=== PATIENT | male | born 1970 | race Two or more races ===

== ENCOUNTER 2024-08-13 16:41 | Emergency (ER) | payer MEDICAID, OTHER ==
[~2024-08-13] VITALS: Ht 175.3 cm; Wt 55.0 kg
[2024-08-13 19:18] LABS: Basophils # (auto) 0 10 ^3/uL (0-0.2); Basophils % (auto) 0.5 % (0.0-2.0); Eosinophils # (auto) 0 10 ^3/uL (0-0.8); Eosinophils % (auto) 0.5 % (0.0-7.0); Hematocrit 37.7 % (41.0-53.0); Hemoglobin 13.2 g/dL (13.5-17.5); Lymphocytes # (auto) 2.1 10 ^3/uL (0.4-5.4); Mean Corpuscular Volume 105.6 fL (80.0-100.0); Monocytes # (auto) 1.3 10 ^3/uL (0-1.3); Monocytes % (auto) 17.4 % (0.0-12.0); Neutrophils # (auto) 4.2 10 ^3/uL (1.6-8.6); Neutrophils % (auto) 54.6 % (37.0-80.0); Nucleated Red Blood Cells % 0.2 %; Platelet Count (auto) 125 10^3/uL (140-450); Red Blood Cells 3.57 10^6/uL (4.5-5.90); White Blood Cell 7.7 10^3/uL (4.4-10.8)
[2024-08-13 19:42] LABS: Alanine Aminotransferase 25 U/L (7-40); Albumin 3.2 g/dL (3.2-4.8); Alkaline Phosphatase 206 U/L (46-116); Anion Gap 9 (5-15); Aspartate Aminotransferase 57 U/L (13-40); BUN/Creatinine Ratio 8.5 (10.0-20.0); Blood Alcohol < 3.0 mg/dL (<10); Blood Urea Nitrogen 7 mg/dL (9-23); Calcium 9.5 mg/dL (8.7-10.4); Carbon Dioxide 24 mmol/L (20-31); Chloride 111 mmol/L (98-107); Glucose 86 mg/dL (74-106); Potassium 3.4 mmol/L (3.5-5.1); Sodium 144 mmol/L (136-145)
[2024-08-13 19:43] LABS: Bilirubin, Total 3.6 mg/dL (0.2-1.0); Creatine Kinase IFCC 640 U/L (46-171); Total Protein 6.6 g/dL (5.7-8.2)
[2024-08-14] MEDS: MECLIZINE HCL 25 MG TAB PO ONE (00:54)
[2024-08-14] MEDS: ONDANSETRON ODT 4 MG TAB PO ONE (00:54)
[2024-08-14] MEDS: IBUPROFEN 600 MG TAB PO ONE (00:54)
[2024-08-14] MEDS: HYDROcodone-ACET 10/325MG TAB PO ONE (00:56)
[2024-08-14 01:00] VITALS: BP 125/68; PULSE 76; RESP 13; TEMP 98.6; O2SAT 98
[2024-08-14] MEDS: SODIUM CHLORIDE 0.9% 1,000 ML IV ONE (01:17)
== END 2024-08-14 04:10 | disposition home or self-care (01) ==
LOC: EDBD 16:41 → ER 16:47 → EDBD 16:47 → ER 08-14 04:10
DX: J06.9 Acute upper respiratory infection, unspecified (principal); M25.551 Pain in right hip; M25.552 Pain in left hip; R51.9 Headache, unspecified; Z79.899 Other long term (current) drug therapy; W18.39XA Other fall on same level, initial encounter; Y93.89 Activity, other specified; Y92.89 Other specified places as the place of occurrence of the external cause; Y99.8 Other external cause status
CPT/HCPCS: 36415; 70450; 72170; 80053; 80320; 82550; 85025; 93005; 96360; 99285; J7030; J8597; Q0162